=== PATIENT | female | born 2000 | race Two or more races ===

== ENCOUNTER → 2024-07-07 | Outpatient (CLI) | payer MEDICAID, SELFPAY ==
--- NOTE | 2024-07-07 14:29 | XR_ITS ---
Examination: Shoulder,right, 3 views Technique: Shoulder AP internal rotation, AP external rotation, Y view shoulder, 3 views Exam date and time :July 07, 2024 1450 hours INDICATIONS: Onset shoulder pain today FINDINGS: No shoulder fracture or dislocation No arthritic change IMPRESSION: Negative for osseous abnormality
== END | disposition home or self-care (01) ==
PROVIDERS: PCP Physician Assistant; Referring Provider Physician Assistant; Visit Provider Physician Assistant
DX: M25.511 Pain in right shoulder (principal)
CPT/HCPCS: 73030